=== PATIENT | female | born 1985 | race Caucasian/White ===

== ENCOUNTER 2018-08-05 11:42 | Emergency (ER) | payer OTHER, MEDICAID ==
[~2018-08-05] VITALS: Ht 165.1 cm; Wt 90.7 kg
[2018-08-05] MEDS ORDERED: PREDNISONE 20 M20 M1 PO (12:08)
[2018-08-05 12:17] VITALS: BP 103/79
== END 2018-08-05 12:18 | disposition home or self-care (01) ==
LOC: M.ERS 11:42
DX: J04.0 Acute laryngitis (principal)